=== PATIENT | male | born 1965 | race Caucasian/White ===

== ENCOUNTER 2024-12-16 09:45 | Outpatient (REF) | payer OTHER, SELFPAY ==
--- NOTE | ~2024-12-16 | XR_ITS ---
CLINICAL HISTORY: M25.511 - Pain in right shoulder Right shoulder two views Comparison: None provided Findings: No acute fracture or dislocation identified. Mild degenerative change glenohumeral joint. No radiopaque foreign body noted. Impression: No acute bony abnormality This document has been electronically signed by: Orlando Hawkins MD on 12/16/2024 21:51:21
--- OUTSIDE RECORDS SUMMARY | 2024-12-17 10:16 | XMS_ITS | Clinical Summary ---
Author Organization [facility] [address] [facility] l[address] Address [address] [place] [address] Phone Care Team Providers Care Nitrating Acid Mixer Name Role Phone Bairon Sams MD Primary Care Provider [phone] Allergies Active Allergy Reactions Criticality Noted Date [...] Type 2 diabetes mellitus wit hout complications ([facility] V24, [facility] V28) 01/01/2019 Overview (04/12/2024): A1C [...] Date Site/Laterality Comments OTHER SURGICAL HISTORY PROCEDURE: [place] DILAT URETHRAL STRIX DILATOR MALE 1ST; COMMENT: [...] Seasonal allergies 01/01/2019 DX:Seasonal a llergies Testosterone 45-gkfn-kwjeslh genase deficiency ([facility] V24) 01/20/2019 DX:Testosterone 72-daio-lpnd drogenase deficiency (HCC) Type 2 diabetes mellitus wit hout complications ([facility] V24, [facility] V28) 01/01/2019 DX:Type 2 diabetes [...] Maintenance Results * (ABNORMAL) Hemoglobin A1c (02/25/2024) [facility] Hemoglobin A1C 6.8(A) <=6.5 % Blood Venous blood specimen / Unknown Result [facility] Provider LAB BLOOD ORDERABLES Cleo l Result * Diabetes Foot Exam (01/29/2024) [facility] Diabetes: Annual Foot Exam Abstracted Result [facility] Provider HEALTH MAINTENANCE Final Result * Colonoscopy (11/20/2023) [facility] Colonoscopy No Interpretation , Abstracted Anatomical Region Laterality Modality Other Result [facility] Provider HEALTH MAINTENANCE Final Result * (ABNORMAL) Lipid panel (11/18/2023) [facility] LDL/HDL Ratio 4 0 - 4 Triglycerides 252(A) 0 - 150 mg/dL Cholesterol 154 0 - 200 mg/dL HDL 38(A) >=40 mg/dL LDL Cholesterol 66 0 - 100 mg/dL Blood Venous blood specimen / Unknown Result [facility] Provider LAB BLOOD ORDERABLES Cleo l Result * Urine Albumin Creatinine Ratio (05/06/2023) [facility] Urine Albumin Creatinine Ratio Abstracted Result [facility] Provider HEALTH MAINTENANCE Final Result * Hepatitis C Screening (01/01/2019) [facility] Hepatitis C Screening Abstracted Result [facility] Provider HEALTH MAINTENANCE Final Result from Last 3 Months or Most Recently Relevant to Health Maintenance [place] Care Teams Nitrating Acid Mixer Relationship Specialty Start Date End Date Bairon Sams MD [address] [place] [id number] PCP - General Internal Medicine 07/30/19
== END 2024-12-16 09:46 | disposition home or self-care (01) ==
LOC: HO.HOSX 09:45
PROVIDERS: Visit Provider Orthopaedic Surgery
DX: M25.811 Other specified joint disorders, right shoulder (principal)
CPT/HCPCS: 73030

== ENCOUNTER 2024-12-16 14:41 | Outpatient (AMB) | payer OTHER, SELFPAY ==
--- NOTE | 2024-12-16 14:45 | MHC.OFFVIS ---
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 He describes his pain as sharp in nature. He states that he aggravated his shoulder by repetitive lifting. He has not had a cortisone injection. Allergies No Known Allergies Allergy (Verified 12/16/24 14:53) Medication List - Last Reconciled 12/16/24 by Matthew Tejeda MD clonazepam 1 mg PO TID PRN empagliflozin (Jardiance) 10 mg PO DAILY emtricitabine-tenofovir alafen 200-25 mg (Descovy) 1 tab PO DAILY escitalopram oxalate mg PO escitalopram oxalate 5 mg PO DAILY imipramine HCl 10 mg PO BEDTIME lisinopril 20 mg PO DAILY metformin ER 500 mg PO DAILY simvastatin 40 mg PO DAILY Physical Exam Vital Signs: BMI result Body Mass Index 26.9 Const Other: Well-nourished well-developed very friendly male awake alert and oriented x3 in no acute distress Extrem Other: Right shoulder examination shows slightly decreased range of motion when compared to his left shoulder, 4+ out of 5 strength with supraspinatus testing, positive impingement signs Results Reviewed Results Reviewed: X-rays of the patient's right shoulder show moderate acromioclavicular joint narrowing, a type 2 acromion, no acute bony abnormalities Assessment & Plan Assessment & Plan (1) Impingement of right shoulder: Code(s): M25.811 - Other specified joint disorders, right shoulder Category: Medical Plan Mr. Sanchez presents with right shoulder pain due to impingement syndrome. I had a lengthy discussion with the patient regarding the treatment options. We will hold off on a cortisone injection for now. I did give him a prescription for a Medrol Dosepak. He will continue with his activity modifications. He will contact me prior to his follow-up appointment in 4-6 weeks should any questions or concerns arise. Feel free to call me at any time should questions regarding his orthopedic management arise. I spent 22 minutes in reviewing the patient's records and imaging studies, seeing the patient and documenting in the medical record. Orders: Orders XR shoulder RT min 2V 12/16/24 M25.511 - Pain in right shoulder Medications: New methylprednisolone (Medrol (Chris)) PO PER PKG DIR 21 ea 0RF Coding Level of Care Code New Pt Level 3 (95246) Complex EM visit Add On G2211 Diagnoses Impingement of right shoulder M25.811
[2024-12-16 14:55] VITALS: BMI 26.9
--- OUTSIDE RECORDS SUMMARY | 2024-12-16 17:51 | XMS_ITS | Clinical Summary ---
Author Organization [facility] [address] [facility] l[address] Address [address] [place] [address] Phone Care Team Providers Care Dressmaker Helper Name Role Phone Bairon Sams MD Primary Care Provider [phone] Allergies Active Allergy Reactions Criticality Noted Date Comments Metformin Diarrhea 08/08/2023 Can handle 1 mg tablet of metformin XR 500 mg Medications lisinopriL (PRINIVIL,ZESTRI L) 20 mg tablet Take 1 tablet (20 mg total) by mouth 1 (one) time each day. 01/08/2024 Active simvastatin (ZOCOR) 40 mg tablet Take 1 tablet (40 mg total) by mouth at bedtime. 01/08/2024 Active emtricitabine-te nofovir alafenamide (Descovy) 200-25 mg per tablet Take 1 tablet by mouth 1 (one) time each day. Active clonazePAM (KlonoPIN) 1 mg tablet Take 1 tablet (1 mg total) by mouth 3 (three) times a day. Max Daily Amount: 3 mg Active escitalopram (LEXAPRO) 5 mg tablet Take 1 tablet (5 mg total) by mouth 1 (one) time each day. Active imipramine (TOFRANIL) 10 mg tablet Take 1 tablet (10 mg total) by mouth 2 (two) times a day. Active Jardiance 10 mg tablet TAKE 1 TABLET BY MOUTH EVERY DAY 90 tablet 1 05/28/2024 Active metFORMIN XR (GLUCOPHAGE-XR) 500 mg 24 hr tablet TAKE 1 TABLET BY MOUTH DAILY AFTER THE MAIN MEAL 90 tablet 06/11/2024 Active Active Problems Problem Noted Date Diagnosed Date Overweight (BMI 25.0-29.9) 02/25/2020 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 Essential hypertension 01/01/2019 Major depression 01/01/2019 Anxiety 01/01/2019 Hyperlipidemia 01/01/2019 Type 2 diabetes mellitus wit hout complications ([facility] V24, [facility] V28) 01/01/2019 Overview (04/12/2024): A1C = 6.5 Immunizations Name Administration Dates Next Due Influenza Quadravalent, MDCK , 0.5ml, preservative free (Flucelvax) 6mo and older 05/09/2023,02/25/2020,04/30/2019 Pneumococcal polysaccharide 23 valent (Pneumovax 23) 2yo and older 04/30/2019 Td Tetanus diptheria (Tdvax) 7yo and older 01/01 Tdap Tetanus diptheria acell ular pertussis (Boostrix; Adacel) 7yo and older 04/06/2018 Surgical History Surgery Date Site/Laterality Comments OTHER SURGICAL HISTORY PROCEDURE: CT DILAT URETHRAL STRIX DILATOR MALE 1ST; COMMENT: x3, age 14, 16 and 26 COLONOSCOPY 05/05/2014 PROCEDURE: HISTORICAL COLONOSCOPY; COMMENT: Sigmoid polyp Medical History Medical History Date Comments Anal condyloma 01/20/2019 DX:Anal condylom a Anxiety 01/01/2019 DX:Anxiety Diverticulosis of colon 01/20/2019 DX:Diver ticulosis of colon Essential hypertension 01/01/2019 DX:Essent ial hypertension 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 DX:Horseshoe ki dney Hyperlipidemia 01/01/2019 DX:Hyperlipidemi a Major depression 01/01/2019 DX:Major depres anaid Seasonal allergies 01/01/2019 DX:Seasonal a llergies 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 ([facility] V24) 01/20/2019 DX:Testosterone 92-kyrj-xwik drogenase deficiency (HCC) Type 2 diabetes mellitus wit hout complications ([facility] V24, [facility] V28) 01/01/2019 DX:Type 2 diabetes mellitus without complications (HCC); COMMENT: A1C = 6.5 Family History Medical History Relation Name Comments Heart attack Aunt paternal Seizures Brother 1/2 paternal Heart attack Father 50's Seizures Paternal Grandfather Seizures Sister 1/2 paternal Heart attack Uncle paternal Relation Name Status Comments Aunt paternal Brother 1/2 paternal Alive Father Alive Maternal Grandfather Maternal Grandmother Mother Alive Paternal Grandfather Paternal Grandmother Sister 1/2 paternal Alive Uncle paternal Social History Tobacco Use Types Packs/Day Years Used Date Smoking Tobacco: Every Day Cigarettes Smokeless Tobacco: Never Alcohol Use Standard Drinks/Week Comments Yes 0 (1 standard drink = 0.6 oz pur e alcohol) Sex and Gender Information Value Date Recorded Sex Assigned at Not on file Legal Sex Male 3:52 AM EST Gender Identity Not on file Sexual Orientation Not on file Obstetrics History Last Filed Vital Signs Vital Sign Reading Time Taken Comments Blood Pressure 114/63 02/27/2024 2:54 PM EDT Pulse 71 02/27/2024 2:54 PM EDT Temperature - - Respiratory Rate - - Oxygen Saturation - - Inhaled Oxygen Concentration - - Weight 71.2 kg (157 lb) 02/27/2024 2:54 PM EDT Height 161.9 cm (5' 3.75 ) 02/27/2024 2:54 PM ED T Body Mass Index 27.16 02/27/2024 2:54 PM EDT Plan of Treatment Health Maintenance Due Date Last Done Comments Diabetes: Annual Retina Eye Exam 11/18/1973 Zoster Vaccines (1 of 2) 11/18/2013 Pneumococcal Vaccine: 50+ Years (2 of 2 - PCV) 04/30/2020 04/30/2019 Pneumococcal Vaccine: Pediatrics (0 to 5 Years) and At-Risk Patients (6 to 64 Years) (2 of 2 - PCV) 04/30/2020 04/30/2019 Depression Screening 05/26/2022 HIV Screening 05/26/2022 Social Influencers of Health Screening 05/26/2022 RSV Immunization Adult Patients (1 - Risk 60-74 years 1-dose series) 2023 COVID-19 Vaccine ( - 2023-2 5 season) 2024 11/01/2020, 10/04/2020 Diabetes: Annual Urine Albumin-Creatinine Ratio (uACR) 05/06/2024 05/06/2023 Diabetes: Blood Sugar Contro l Test (HGBA1C) 08/24/2024 02/25/2024, 02/24/2024, 11/18/2023 Diabetes: Annual GFR (Glomerular Filtration Rate) 11/17/2024 11/18/2023 Hypertension/CHF/CAD Annual BMP Blood Test 11/17/2024 11/18/2023 Diabetes: Annual Foot Exam 01/28/2025 01/29/2024 Influenza Vaccine (Season Ended) 2025 05/09/2023, 02/25/2020, 04/30/2019 Cholesterol Screening (Lipid Panel) 11/17/2028 11/18/2023, 11/18/2023 DTaP,Tdap,and Td Vaccines (3 - Td or Tdap) 01/01/2029 01/01/2019, 04/06/2018 Colorectal Cancer Screening: Colonoscopy 2033 11/20/2023 Hepatitis C Screening Completed 01/01/2019 HIB Vaccines Aged Out No longer eligi ble based on patient's age to complete this topic HPV Vaccines Aged Out No longer eligi ble based on patient's age to complete this topic Hepatitis A Vaccines Aged Out No long er eligible based on patient's age to complete this topic Hepatitis B Vaccines Aged Out No long er eligible based on patient's age to complete this topic IPV Vaccines Aged Out No longer eligi ble based on patient's age to complete this topic MMR Vaccines Aged Out No longer eligi ble based on patient's age to complete this topic Meningococcal ACWY Vaccine Aged Out N o longer eligible based on patient's age to complete this topic Meningococcal B Vaccine Aged Out No l onger eligible based on patient's age to complete this topic RSV Immunization Patients Under 20 months Aged Out No longer eligible b ased on patient's age to complete this topic Varicella Vaccines Aged Out No longer eligible based on patient's age to complete this topic Procedures Procedure Name Priority Date/Time Associated Diagnosis Comments HEMOGLOBIN A1C Routine 02/25/2024 DIABETES FOOT EXAM Routine 01/29/2024 COLONOSCOPY Routine 11/20/2023 LIPID PANEL Routine 11/18/2023 URINE ALBUMIN CREATININE RATIO Routine 05/06/2023 HEPATITIS C SCREENING Routine 01/01/2019 from Last 3 Months or Most Recently Relevant to Health Maintenance Results * (ABNORMAL) Hemoglobin A1c (02/25/2024) [facility] Hemoglobin A1C 6.8(A) <=6.5 % Blood Venous blood specimen / Unknown Result [facility] Provider LAB BLOOD ORDERABLES Cleo l Result * Diabetes Foot Exam (01/29/2024) [facility] Diabetes: Annual Foot Exam Abstracted Result [facility] Provider HEALTH MAINTENANCE Final Result * Colonoscopy (11/20/2023) [facility] Colonoscopy No Interpretation , Abstracted Anatomical Region Laterality Modality Other Result [facility] Provider HEALTH MAINTENANCE Final Result * (ABNORMAL) Lipid panel (11/18/2023) [facility] LDL/HDL Ratio 4 0 - 4 Triglycerides 252(A) 0 - 150 mg/dL Cholesterol 154 0 - 200 mg/dL HDL 38(A) >=40 mg/dL LDL Cholesterol 66 0 - 100 mg/dL Blood Venous blood specimen / Unknown Result [facility] Provider LAB BLOOD ORDERABLES Cleo l Result * Urine Albumin Creatinine Ratio (05/06/2023) [facility] Urine Albumin Creatinine Ratio Abstracted Result [facility] Provider HEALTH MAINTENANCE Final Result * Hepatitis C Screening (01/01/2019) [facility] Hepatitis C Screening Abstracted Result [facility] Provider HEALTH MAINTENANCE Final Result from Last 3 Months or Most Recently Relevant to Health Maintenance Insurance [place] - [place] AET[place] Care Teams Dressmaker Helper Relationship Specialty Start Date End Date Bairon Sams MD [address] [place] [phone] PCP - General Internal Medicine 07/30/19
== END 2024-12-16 15:08 | disposition home or self-care (01) ==
LOC: HO.HOS 14:42
PROVIDERS: PCP Internal Medicine; Visit Provider Orthopaedic Surgery
DX: M25.811 Other specified joint disorders, right shoulder (principal)
CPT/HCPCS: 99203; G2211

== ENCOUNTER → 2024-12-16 14:44 | Outpatient (BNV) | payer OTHER, SELFPAY | PROVIDERS: Visit Provider Radiology Diagnostic Radiology | DX: M25.511 Pain in right shoulder (principal) | CPT/HCPCS: 73030 ==

== ENCOUNTER 2025-01-20 14:39 | Outpatient (AMB) | payer OTHER, SELFPAY ==
--- NOTE | 2025-01-20 14:42 | MHC.OFFVIS ---
Intake Visit Reasons: OV-Right shoulder pain follow up Intake Note: Watson is a 59 year old male right hand dominant who presents today for a follow up for his Right shoulder pain. At last visit on 12/16/24 he was given a prescription for a Medrol Dosepak. The patient states that he got temporary relief from the medicine. He continues with his home stretching program. He has not had a cortisone injection previously given into his right shoulder. Allergies No Known Allergies Allergy (Verified 01/20/25 14:47) Medication List - Last Reconciled 01/20/25 by Leona Joshi, RN clonazepam 1 mg PO TID PRN empagliflozin (Jardiance) 10 mg PO DAILY emtricitabine-tenofovir alafen 200-25 mg (Descovy) 1 tab PO DAILY escitalopram oxalate mg PO escitalopram oxalate 5 mg PO DAILY imipramine HCl 10 mg PO BEDTIME lisinopril 20 mg PO DAILY metformin ER 500 mg PO BID simvastatin 40 mg PO DAILY Physical Exam Extrem Other: Right shoulder examination shows slightly decreased range of motion when compared to his left shoulder, 4+ out of 5 strength with supraspinatus testing, positive impingement signs Office Procedures AMB Joint Injection/Aspiration Joint Injection/Aspiration Primary Site: right shoulder Prep: site was prepped using aseptic technique Injected: 40 mg of, DepoMedrol and 1% plain lidocaine Procedure: The patient tolerated the procedure well Coding 43508 - Large joint Procedure code (CPT) selection complete Assessment & Plan Assessment & Plan (1) Impingement of right shoulder: Code(s): M25.811 - Other specified joint disorders, right shoulder Category: Medical Plan Mr. Sanchez presents with right shoulder pain due to impingement syndrome and possible rotator cuff tearing. The risks and benefits of a right shoulder cortisone injection were discussed at length with the patient. The patient wished to proceed. He tolerated the injection well. He will continue with his home stretching program to prevent stiffness. He will contact me prior to his follow-up appointment in 3 months should his symptoms worsen in any way. If he does not get good relief from the cortisone injection I will order an MRI of his right shoulder to further evaluate the status of his rotator cuff tendons. Feel free to call me at any time should questions regarding his orthopedic management arise. I spent 22 minutes in reviewing the patient's records and imaging studies, seeing the patient and documenting in the medical record. Orders: Orders AMB Joint Injection/Aspiration 01/20/25 M25.811 - Other specified joint disorders, right shoulder Coding Level of Care Code Est Pt Level 3 (70010) Complex EM visit Add On G2211 Diagnoses Impingement of right shoulder M25.811 CPT Codes Coding - 49243 Large joint: 47052 - Large joint ([id number])
--- OUTSIDE RECORDS SUMMARY | 2025-01-20 14:42 | XMS_ITS | Clinical Summary ---
Author Organization [facility] Address [address] [place] [address] Care Team Providers Care Dressmaking Teacher Name Role Phone Unavailable Primary Care Provider Unavailabl e Source Comments PLEASE NOTE, if this patient is a minor, it may be UNLAWFUL to discuss sensitive information that is contained in these records (such as FAMILY PLANNING, MENTAL HEALTH or SUBSTANCE ABUSE) with the minor patient's parent or other person without the patient's specific authorization.[facility] Immunizations Immunization Administration Dates Next Due Moderna COVID-19 Vaccine, re d cap blue label, 12+ Primary Series 11/01/2020,10/04/2020 Social History Tobacco Use Types Packs/Day Years Used Date Smoking Tobacco: Never Assessed Social Connections Answer Date Recorded Social Connections and Isolation 0 2023 Financial Resource Strain Answer Date R ecorded Financial Resource Strain 0 2023 Stress Answer Date Recorded Stress 0 2023 Physical Activity Answer Date Recorded Physical Activity 0 2023 Food Insecurity Answer Date Recorded Food 0 2023 Transportation Needs Answer Date Record ed Transportation 0 2023 Housing Stability Answer Date Recorded Housing 0 2023 Safety and Environment Answer Date Josep rded Safety 0 2023 Utilities Answer Date Recorded Utilities 0 2023 Employment Answer Date Recorded Employment 0 2023 Sex and Gender Information Value Date Recorded Sex Assigned at Not on file Legal Sex Male 9:05 AM PDT Gender Identity Not on file Sexual Orientation Not on file Plan of Treatment Health Maintenance Due Date Last Done Comments Anxiety Screening 1965 Hepatitis C Screening 1965 Tobacco Screening 1965 HIV Screening 11/18/1978 Hypertension Screening (#1) 11/18/1981 CT Colonography 11/18/2008 Colonoscopy 11/18/2008 Colorectal Cancer Screening 11/18/2008 FIT/gFOBT 11/18/2008 Fecal DNA 11/18/2008 Flexible Sigmoidoscopy 11/18/2008 Imm-Zoster, Recombinant (1 of 2) 11/18/2013 Imm-DTaP/Tdap/Td (1 - Tdap) 01/02/2019 01/01/2019 Imm-Pneumococcal 50+ (2 of 2 - PCV) 04/30/202004/30 Diabetes Screening 09/02/2023 09/01/2020, 09/01/2020 [id number]-81 (3 - season) 2024 021, 10/04/2020 Alcohol and Drug Screen 06/23/2024 Depression Annual Screen 06/23/2024 Imm-Influenza (#1) 2025 02/25/2020, 1 06/30/2018, 03/16/2017 Lipid Screening 09/01/2025 09/01/2020 Insurance [facility] RICARDO
--- OUTSIDE RECORDS SUMMARY | 2025-01-20 14:42 | XMS_ITS | Encounter Summary ---
Author Organization [facility] Address [address] [facility] [address] [place] [phone] Phone Care Team Providers Care Label Fuser Tender Name Role Phone Naheed Thornton MANAGED CARE DIRECTOR Unavailable Tripp Gomez MD Unavailable Thad Singer MD Unavailable Roberto Felicita Denice BOOKING SUPERVISOR Unavailable [phone] Tamanna Del Cid MD Unavailable Jorgito Brown MD Unavailable Eris James MD Unavailable Alexandra Macias NP Unavailable Thad Singer MD Primary Care Provider Pcp, Unknown Primary Care Provider Unavailabl e Reason for Visit * Reason Comments Medication Refill Encounter Details Date Type Department Care Team (Late st Contact Info) Description 12/19/2017 Refill [facility] [address] [place] [address] Alexandra Macias, NAT [address] [address] Medication Refill Social History Tobacco Use Types Packs/Day Years Used Date Smoking Tobacco: Never Assessed Sex and Gender Information Value Date Recorded Sex Assigned at Not on file Legal Sex Male 9:43 PM EDT Gender Identity Not on file Sexual Orientation Not on file documented as of this encounter Plan of Treatment Not on file documented as of this encounter Visit Diagnoses Not on filedocumented in this encounter Care Teams Label Fuser Tender Relationship Specialty Start Date End Date Thad Singer MD [address] [place] [address], [address] [place] [address] PCP - General 06/26/17 04/13/19 Pcp, Unknown PCP - General 04/14/19 Naheed Thornton, MANAGED CARE DIRECTOR [address] [place] [id number] [email or web address] Historical LMR Provider 04/08/17 Tripp Gomez MD [address] [place] [address] [address] [place] [address] Historical LMR Provider 04/08/17 06/30/21 Thad Singer MD [address] [place] [phone] Historical LMR Provider 04/08/17 Felicita Mejia FNP [address] [facility], [address] [place] [address] Historical LMR Provider 04/08/17 06/30/21 Tamanna Del Cid MD [address] [facility], [address], [address] [place] [address] Historical LMR Provider 04/08/17 06/30/21 Jorgito Brown MD [address] [place] [id number] [email or web address] Historical LMR Provider 04/08/17 06/30/21 Eris James MD [address] [place] [phone] [email or web address] Historical LMR Provider 04/08/17 06/30/21 Alexandra Macias NP [address] [place] [phone] Historical LMR Provider 04/08/17 2 documented as of this encounter Additional Source Comments The information contained in this document represents components of the legal health record. It is not the complete legal health record.[facility]
--- OUTSIDE RECORDS SUMMARY | 2025-01-20 14:42 | XMS_ITS | Clinical Summary ---
Author Organization [facility] [address] [facility] [address] Address [address] [place] [address] Phone Care Team Providers Care Tick Sewer Name Role Phone Bairon Sams MD Primary Care Provider [phone] Allergies Active Allergy Reactions Criticality Noted Date [...] Type 2 diabetes mellitus wit hout complications ([facility] V24, [facility] V28) 01/01/2019 Overview (04/12/2024): A1C = 6.5 [...] Date Site/Laterality Comments OTHER SURGICAL HISTORY PROCEDURE: [place] DILAT URETHRAL STRIX DILATOR MALE 1ST; COMMENT: [...] Seasonal allergies 01/01/2019 DX:Seasonal a llergies Testosterone 97-usgc-zrdpdtd genase deficiency ([facility] V24) 01/20/2019 DX:Testosterone 25-uqtc-qcmc drogenase deficiency (HCC) Type 2 diabetes mellitus wit hout complications ([facility] V24, [facility] V28) 01/01/2019 DX:Type 2 diabetes mellitus without [...] (2 of 2 - PCV) 04/30/2020 04/30/2019 HIV Screening 05/26/2022 Social Influencers of Health Screening 05/26/2022 RSV Immunization Adult Patients (1 - Risk 60-74 years 1-dose series) 2023 COVID-19 Vaccine (3 - 2023-2 5 season) 2024 11/01/2020, 10/04/2020 Diabetes: Annual Urine Albumin-Creatinine Ratio (uACR) 05/06/2024 05/06/2023 Depression Screening 06/23/2024 Diabetes: Blood Sugar Contro l Test (HGBA1C) 08/24/2024 02/25/2024, 02/24/2024, 11/18/2023 Diabetes: Annual GFR (Glomerular Filtration Rate) 11/17/2024 11/18/2023 Hypertension/CHF/CAD Annual BMP Blood Test 11/17/2024 11/18/2023 Diabetes: Annual Foot Exam 01/28/2025 01/29/2024 Influenza Vaccine (#1) 2025 3, 02/25/2020, 04/30/2019 Cholesterol Screening (Lipid Panel) 11/17/2028 [...] Maintenance Results * (ABNORMAL) Hemoglobin A1c (02/25/2024) Hemoglobin A1C 6.8(A) <=6.5 % Blood Venous blood specimen / Unknown Result [facility] Provider LAB BLOOD ORDERABLES Cleo l Result * Diabetes Foot Exam (01/29/2024) Pathologist [facility] Diabetes: Annual Foot Exam Abstracted Result [facility] Provider HEALTH MAINTENANCE Final Result * Colonoscopy (11/20/2023) Pathologist [facility] Colonoscopy No Interpretation , Abstracted Anatomical Region Laterality Modality Other Result [facility] Provider HEALTH MAINTENANCE Final Result * (ABNORMAL) Lipid panel (11/18/2023) [facility] LDL/HDL Ratio 4 0 - 4 Triglycerides 252(A) 0 - 150 mg/dL Cholesterol 154 0 - 200 mg/dL HDL 38(A) >=40 mg/dL LDL Cholesterol 66 0 - 100 mg/dL Blood Venous blood specimen / Unknown Result [facility] Provider LAB BLOOD ORDERABLES Cleo l Result * Urine Albumin Creatinine Ratio (05/06/2023) [facility] Urine Albumin Creatinine Ratio Abstracted Result [facility] Provider HEALTH MAINTENANCE Final Result * Hepatitis C Screening (01/01/2019) [facility] Hepatitis C Screening Abstracted Result [facility] Provider HEALTH MAINTENANCE Final Result from Last 3 Months or Most Recently Relevant to Health Maintenance Insurance [place] Care Teams Tick Sewer Relationship Specialty Start Date End Date Bairon Sams MD [address] [place] [id number] PCP - General Internal Medicine 07/30/19
== END 2025-01-20 15:24 | disposition home or self-care (01) ==
LOC: HO.HOS 14:40
PROVIDERS: PCP Internal Medicine; Visit Provider Orthopaedic Surgery
DX: M25.811 Other specified joint disorders, right shoulder (principal)
CPT/HCPCS: 20610; 99213

== ENCOUNTER → 2025-01-20 14:39 | Outpatient (BNVA) | payer OTHER, SELFPAY | PROVIDERS: PCP Internal Medicine; Visit Provider Orthopaedic Surgery | DX: M25.811 Other specified joint disorders, right shoulder (principal) | CPT/HCPCS: 20610; J1010; J2003 ==